=== PATIENT | female | born 1995 | race Hispanic/Latino ===

== ENCOUNTER 2024-12-31 23:50 | Emergency (ER) | payer BC ==
--- OUTSIDE RECORDS SUMMARY | 2024-12-31 23:53 | XMS REPORT | Continuity of Care Document ---
Author Name Unknown Address [address] [facility] [address] [place] [address] [facility] Address [address] [facility] [place] [address] Care Team Providers Care Gauge Checker Name Role Phone Unavailable Unavailable Unavailable Payers Payer Name Policy Type Policy Number Effective Date Expirati on Date Source Allergies, Adverse Reactions, Alerts Allergy Name Allergy Type Status Severity Reaction(s) Onset Date Inactive Date Treating Clinician Comments Source No Known Allergie s DA Active U 08-20 00:00: 00 [facility] Notes Date/Time Note Provider Source 2018-08-20 15:43:00 [facility] ([id number]) EMERGENCY PROVIDER REPORT REPORT#:[id number] REPORT STATUS: Signed DATE:08/20/18 TIME: 1543 PATIENT: KIMBERLEY RIBEIRO UNIT #: [id number] ROOM/BED: AGE: 23 SEX: F PCP PHYS: Subhash Owens MD SERVICE AUTHOR: Jonna Chaidez NP * ALL edits or amendments must be made on the electronic/computer document * HPI-Allergic Reaction General Confirmed Patient Yes Initial Greet Date/Time 08/20/18 1539 Presentation Chief Complaint Allergic reaction Hx Obtained From Patient Free Text HPI Notes Free Text HPI Notes 23 y/o female with history of depression and anxiety presents to the ED with complaints of rash to bilateral upper extremities x 3 hours. Pt reports rash is pruritic. Pt also reports intermittent boughts of difficulty breathing. Pt denies CP, SOB at this time. Pt denies changes in detergent or foods. 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 Review of Systems ROS Statements All systems rev neg except as marked. Focused Review of Systems Skin Reports: Rash. Past Medical History - Adult Stated Complaint ALLERGIC REACTION Allergies Coded Allergies: No Known Allergies (08/20/18) Smoking status for patients 13 years old or older: Unknown,if ever smoked Physical Exam Vital Signs Vital Signs First Documented: Result Date Time Pulse Ox 99 08/20 1528 B/P 141/90 08/20 1528 B/P Mean 107 08/20 152 O2 Delivery Room air 08/21 1527 Temp 36.8 08/20 152 Pulse 100 08/20 152 Resp 18 08/21 1527 Last Documented: Result Date Time Pulse Ox 99 08/20 2021 B/P 118/76 08/20 2021 B/P Mean 90 08/20 2021 O2 Delivery Room air 08/20 2021 Temp 36.9 08/20 2021 Pulse 86 08/20 2021 Resp 16 08/20 2021 Review of Vital Signs Reviewed, Vital signs normal Focused PE General/Const General/Const Awake, Alert, No acute distress, Well appearing, Well developed , Well hydrated, Well nourished, Cooperative, Not toxic appearing MS Head Head Normocephalic Eyes Eyes PERRL, EOMI, No nystagmus Ears/Nose/Throat Ears/Nose/Throat Airway patent, Mucous membranes moist, Pharynx NL, Tympanic membs NL Text/Dict Notes no swelling to lips or tongue present Resp/Chest Respiratory/Chest Breath sounds NL, Breath sounds = bilat, No respiratory distress, No rhonchi, No wheezing, No retractions Cardiovascular Cardiovascular Heart rate NL, Regular rhythm, Heart sounds NL, Cap refill not delayed Abdomen/GI Abdomen/GI Soft, Non-tender, McBurney's non-tender Skin Skin Warm, Dry, Intact, Turgor NL, No swelling Text/Dict Notes Clusters of hives noted BUE. Rash blanches. Neurologic Neurologic Oriented X3, Speech NL, No motor deficits, No sensory deficits Re-Evaluation [facility] )( Re-Evaluation/Progress #1 Text/Dict Note Pt reports relief from pruritis. Erythema to BLE decreased. Hives decreased. Time of Re-Eval 1831 )( Re-Eval Status Improved Eval Following Treatment Pt. feels better Pain Re-Evaluation Denies pain Re-Evaluation/Progress #2 Text/Dict Note Discussed all results and most likely diagnosis with patient Pt verbalizes understanding and agrees with d/c plan. Pt to f/u outpt with allergy. Strict return precautions given. All concerns addressed. Time of Eval 1921 Re-Eval Status Improved ED Course Medication(s) Ordered Medication(s) Ordered: Antihistamine Drugs Sig/Marlene Start time Last Medication Dose Route Stop Time Status Admin Diphenhydramine HCl 25 MG X1ED STA 08/20 1543 DC 08/20 IV 08/20 1544 1755 Electrolytic, Caloric, And James Sig/Marlene Start time Last Medication Dose Route Stop Time Status Admin Sodium Chloride 0 ASDIR PRN 08/20 1545 DCD IV 08/21 1443 Sodium Chloride 1,000 ML X1ED STA 08/20 1543 DC 08/20 IV 08/20 1642 1756 Gastrointestinal Drugs Sig/Marlene Start time Last Medication Dose Route Stop Time Status Admin Famotidine 20 MG X1ED STA 08/20 1543 DC 08/20 IV 08/20 1544 1756 Hormones And Synthetic Substit Sig/Marlene Start time Last Medication Dose Route Stop Time Status Admin Methylprednisolone 125 MG X1ED STA 08/20 1543 DC 08/20 Sodium Succinate IV 08/20 1544 1755 Patient Discharge Departure Vital Signs/Condition Vital Signs First Documented: Result Date Time Pulse Ox 99 08/20 1528 B/P 141/90 08/20 1528 B/P Mean 107 08/20 1528 O2 Delivery Room air 08/20 1528 Temp 36.8 08/20 1528 Pulse 100 08/20 1528 Resp 18 08/20 1528 Last Documented: Result Date Time Pulse Ox 99 08/20 2021 B/P 118/76 08/20 2021 B/P Mean 90 08/20 2021 O2 Delivery Room air 08/20 2021 Temp 36.9 08/20 2021 Pulse 86 08/20 2021 Resp 16 08/20 2021 All vital signs available at the time of this entry have been reviewed. Condition Stable Clinical Impression Clinical Impression Primary Impression: Allergic reaction Secondary Impressions: Urticaria Disposition Decision Discharge )( Discharged to Home Yes )( Time 185 )( Date 08/20/18 Discharge/Care Plan Counseled Regarding Diagnosis Prescriptions prednisone Prescriptions Reviewed Risks, Benefits, Alternative treatment Discharge Note I have spoken with the patient and/or caregivers. I have explained the patient's condition, diagnoses and treatment plan based on the information available to me at this time. I have answered the patient's and/or caregiver's questions and addressed any concerns. The patient and/or caregivers have as good an understanding of the patient's diagnosis, condition and treatment plan as can be expected at this point. The vital signs have been stable. The patient's condition is stable and appropriate for discharge from the emergency department. The patient will pursue further outpatient evaluation with the primary care physician or other designated or consulting physician as outlined in the discharge instructions. The patient and/or caregivers are agreeable to this plan of care and follow-up instructions have been explained in detail. The patient and/or caregivers have received these instructions in written format and have expressed an understanding of the discharge instructions. The patient and/or caregivers are aware that any significant change in condition or worsening of symptoms should prompt an immediate return to this or the closest emergency department or a call to 911. at [phone] RPT #:[id number] END OF REPORT [facility] 2018-08-20 15:43:00 [facility] EMERGENCY PROVIDER REPORT REPORT#:[id number] REPORT STATUS: Signed DATE:08/20/18 TIME: 1542 PATIENT: KIMBERLEY RIEBIRO UNIT #: [id number] ROOM/BED: AGE: 23 SEX: F PCP PHYS: Subhash Owens MD SERVICE AUTHOR: Jonna Chaidez NP * ALL edits or amendments must be made on the electronic/computer document * Jonna Chaidez 08/20/18 1543: HPI-Allergic Reaction General Confirmed Patient Yes Presentation Chief Complaint Allergic reaction Hx Obtained From Patient Free Text HPI Notes Free Text HPI Notes 23 y/o female with history of depression and anxiety presents to the ED with complaints of rash to bilateral upper extremities x 3 hours. Pt reports rash is pruritic. Pt also reports intermittent boughts of difficulty breathing. Pt denies CP, SOB at this time. Pt denies changes in detergent or foods. 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 Review of Systems ROS Statements All systems rev neg except as marked. Focused Review of Systems Skin Reports: Rash. Past Medical History - Adult Stated Complaint ALLERGIC REACTION Allergies Coded Allergies: No Known Allergies (08/20/18) Smoking status for patients 13 years old or older: Unknown,if ever smoked Physical Exam Vital Signs Vital Signs First Documented: Result Date Time Pulse Ox 99 08/20 1528 B/P 141/90 08/20 1528 B/P Mean 107 08/20 1528 O2 Delivery Room air 08/20 152 Temp 36.8 08/20 152 Pulse 100 08/20 1528 Resp 18 08/20 1528 Last Documented: Result Date Time Pulse Ox 99 08/20 2021 B/P 118/76 08/20 2021 B/P Mean 90 08/20 2021 O2 Delivery Room air 08/20 2021 Temp 36.9 08/20 2021 Pulse 86 08/20 2021 Resp 16 08/20 2021 Review of Vital Signs Reviewed, Vital signs normal Focused PE General/Const General/Const Awake, Alert, No acute distress, Well appearing, Well developed , Well hydrated, Well nourished, Cooperative, Not toxic appearing MS Head Head Normocephalic Eyes Eyes PERRL, EOMI, No nystagmus Ears/Nose/Throat Ears/Nose/Throat Airway patent, Mucous membranes moist, Pharynx NL, Tympanic membs NL Text/Dict Notes no swelling to lips or tongue present Resp/Chest Respiratory/Chest Breath sounds NL, Breath sounds = bilat, No respiratory distress, No rhonchi, No wheezing, No retractions Cardiovascular Cardiovascular Heart rate NL, Regular rhythm, Heart sounds NL, Cap refill not delayed Abdomen/GI Abdomen/GI Soft, Non-tender, McBurney's non-tender Skin Skin Warm, Dry, Intact, Turgor NL, No swelling Text/Dict Notes Clusters of hives noted BUE. Rash blanches. Neurologic Neurologic Oriented X3, Speech NL, No motor deficits, No sensory deficits Re-Evaluation [facility] )( Re-Evaluation/Progress #1 Text/Dict Note Pt reports relief from pruritis. Erythema to BLE decreased. Hives decreased. Time of Re-Eval 1831 )( Re-Eval Status Improved Eval Following Treatment Pt. feels better Pain Re-Evaluation Denies pain Re-Evaluation/Progress #2 Text/Dict Note Discussed all results and most likely diagnosis with patient Pt verbalizes understanding and agrees with d/c plan. Pt to f/u outpt with allergy. Strict return precautions given. All concerns addressed. Time of Eval 1921 Re-Eval Status Improved ED Course Medication(s) Ordered Medication(s) Ordered: Antihistamine Drugs Sig/Marlene Start time Last Medication Dose Route Stop Time Status Admin Diphenhydramine HCl 25 MG X1ED STA 08/20 1543 DC 08/20 IV 08/20 1544 1755 Electrolytic, Caloric, And James Sig/Marlene Start time Last Medication Dose Route Stop Time Status Admin Sodium Chloride 0 ASDIR PRN 08/20 1545 DCD IV 08/21 1443 Sodium Chloride 1,000 ML X1ED STA 08/20 1543 DC 08/20 IV 08/20 1642 1756 Gastrointestinal Drugs Sig/Marlene Start time Last Medication Dose Route Stop Time Status Admin Famotidine 20 MG X1ED STA 08/20 1543 DC 08/20 IV 08/20 1544 1756 Hormones And Synthetic Substit Sig/Marlene Start time Last Medication Dose Route Stop Time Status Admin Methylprednisolone 125 MG X1ED STA 08/20 1543 DC 08/20 Sodium Succinate IV 08/20 1544 1755 Patient Discharge Departure Vital Signs/Condition Vital Signs First Documented: Result Date Time Pulse Ox 99 08/20 1528 B/P 141/90 08/20 1528 B/P Mean 107 08/20 1528 O2 Delivery Room air 08/20 1528 Temp 36.8 08/20 1528 Pulse 100 08/20 1528 Resp 18 08/20 1528 Last Documented: Result Date Time Pulse Ox 99 08/20 2021 B/P 118/76 08/20 2021 B/P Mean 90 08/20 2021 O2 Delivery Room air 08/20 2021 Temp 36.9 08/20 2021 Pulse 86 08/20 2021 Resp 16 08/20 2021 All vital signs available at the time of this entry have been reviewed. Condition Stable Clinical Impression Clinical Impression Primary Impression: Allergic reaction Secondary Impressions: Urticaria Disposition Decision Discharge )( Discharged to Home Yes )( Time 1853 )( Date 08/20/18 Discharge/Care Plan Counseled Regarding Diagnosis Prescriptions prednisone Prescriptions Reviewed Risks, Benefits, Alternative treatment Discharge Note I have spoken with the patient and/or caregivers. I have explained the patient's condition, diagnoses and treatment plan based on the information available to me at this time. I have answered the patient's and/or caregiver's questions and addressed any concerns. The patient and/or caregivers have as good an understanding of the patient's diagnosis, condition and treatment plan as can be expected at this point. The vital signs have been stable. The patient's condition is stable and appropriate for discharge from the emergency department. The patient will pursue further outpatient evaluation with the primary care physician or other designated or consulting physician as outlined in the discharge instructions. The patient and/or caregivers are agreeable to this plan of care and follow-up instructions have been explained in detail. The patient and/or caregivers have received these instructions in written format and have expressed an understanding of the discharge instructions. The patient and/or caregivers are aware that any significant change in condition or worsening of symptoms should prompt an immediate return to this or the closest emergency department or a call to 911. Pratima Schulz 08/23/18 0949: HPI-Allergic Reaction General Initial Greet Date/Time 08/20/18 1539 Physical Exam Vital Signs Vital Signs Patient Discharge Departure Vital Signs/Condition Vital Signs Supervising Physician Note MidLv Saw Pt Alone I have reviewed the PA/SLUDGE CONTROL ATTENDANT's note and plan of care. I was available for consultation as needed at all times during the patient's visit in the emergency department. I agree with the clinical impression, plan and disposition. at 1691 at 0949 [facility] #:[id number] END OF REPORT [facility]
[2025-01-01] MEDS ORDERED: NA CHLORIDE 0.9% 1,000 ML ONE (00:14)
[2025-01-01 00:50] LABS: Absolute Lymphocytes (CBC) 2.8 K/uL (0.7-4.9); Hematocrit 40.1 % (36.0-45.0); Hemoglobin 14.0 g/dL (12.0-15.0); MCH 30.3 pg (27.0-35.0); MCHC 35.0 g/dL (32.0-36.0); MCV 86.6 fL (80-100); MPV 7.8 fL (7.6-11.3); Nucleated RBC Absolute Count 0.0 (0-0); Nucleated Red Blood Cells % 0.1 % (0-0); RBC Red Blood Cell Count 4.63 M/uL (3.86-4.86); White Blood Count 11.10 thou/uL (4.3-10.9)
[2025-01-01 00:58] LABS: ALT/SGPT 25 U/L (13-56); Albumin 3.5 g/dL (3.4-5.0); Albumin/Globulin Ratio 0.8 (1.1-1.8); Alkaline Phosphatase 76 U/L (45-117); Anion Gap 9.7 mEq/L (5.0-15.0); BUN Blood Urea Nitrogen 18 mg/dL (7-18); Globulin 4.5 g/dL (2.3-3.5); Glucose Level 102 mg/dL (74-106); Lipase 41 U/L (13-75); Magnesium 1.7 mg/dL (1.6-2.4); Potassium 3.7 mEq/L (3.5-5.1)
[2025-01-01 01:00] LABS: AST/SGOT < 10 U/L (15-37); Bilirubin Indirect, Calculated 0.0 mg/dL (0.2-0.8)
[2025-01-01 01:01] LABS: Sqamous Epithelial <5 /HPF (None Seen); Urine Culture Reflex Order NOT NEEDED; Urine Microscopic Reflex YN ORDER UMIC
--- NOTE | 2025-01-01 01:31 | EDPHYS ---
Physician Documentation [facility] Name: Osiris Morley Age: 29 yrs Sex: Female : 1995 Arrival Date: 12/31/2024 Time: 23:50 Bed 14 Private MD: ED Physician Navneet Ortiz HPI: 01/01 00:19 This 29 yrs old Female presents to ER via Ambulatory with complaints of Blood kb sugar problem. 00:19 Patient is a 29-year-old female with type 2 diabetes who presents for fluctuations in kb blood sugar levels today and is making her not feel quite right. Reports sugars from the 60s to 150s. Mother states patient is very sensitive to fluctuations in her blood sugar. Patient takes Ozempic once weekly for diabetes.. 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 - Infectious Disease History:: Denies. - Social history:: Smoking status: Patient denies any tobacco usage or history of. Patient uses alcohol, occasionally. Patient/guardian denies using street drugs. ROS: 00:19 Constitutional: As per HPI kb Exam: 00:19 Constitutional: This is a well developed, well nourished patient who is awake, alert, kb and in no acute distress. Head/Face: Normocephalic, atraumatic. ENT: Moist Mucous membranes Cardiovascular: Regular rate Respiratory: Respirations even and unlabored. No increased work of breathing. Talking in full sentences Skin: Warm, dry with normal turgor. Normal color. MS/ Extremity: Pulses equal, no cyanosis. Neurovascular intact. Full, normal range of motion. Neuro: Awake and alert, GCS 15, oriented to person, place, time, and situation. 00:45 ECG was reviewed by the Attending Physician. kb Vital Signs: 00:00 BP 129 / 88; Pulse 77; Resp 20; Pulse Ox 100% ; vc1 00:01 BP 139 / 86; Pulse 82; Resp 18 S; Temp 97.2(TE); Pulse Ox 99% ; Weight 85.28 kg; Height br2 5 ft. 3 in. ; Pain 0/10; 01:00 BP 132 / 74; Pulse 77; Resp 21; Pulse Ox 100% ; vc1 00:01 Body Mass Index 33.30 (85.28 kg, 160.02 cm) br2 00:01 Pain Scale: Adult br2 MDM: 12/31 23:54 Medical Screening Exam initiated kb 01/01 00:20 Differential diagnosis: Hyperglycemia, UTI, arrhythmia, DKA. Data reviewed: vital kb signs, nurses notes. Historians other than the Patient: Parent: Mother. 01:29 Counseling: I had a detailed discussion with the patient and/or guardian regarding the kb historical points, exam findings, and any diagnostic results supporting the discharge/admit diagnosis, lab results, the need for outpatient follow up, a family practitioner, to return to the emergency department if symptoms worsen or persist or if there are any questions or concerns that arise at home. 12/31 23:56 Order name: Basic Metabolic Panel; Complete Time: 01:02 kb 12/31 23:56 Order name: CBC with Diff; Complete Time: 00:52 kb 12/31 23:56 Order name: Hepatic Function; Complete Time: 01:02 kb 12/31 23:56 Order name: Lipase; Complete Time: 01:02 kb 12/31 23:56 Order name: Magnesium; Complete Time: 01:02 kb 12/31 23:56 Order name: Phosphorus; Complete Time: 01:02 kb 12/31 23:56 Order name: UA Rfx Khoa Cult if indicated; Complete Time: 01:02 kb 12/31 23:56 Order name: EKG; Complete Time: 23:56 kb 12/31 23:56 Order name: Cardiac monitoring; Complete Time: 00:46 kb 12/31 23:56 Order name: EKG - Nurse/Tech; Complete Time: 00:46 kb 12/31 23:56 Order name: IV Saline Lock; Complete Time: 00:32 kb 12/31 23:56 Order name: NPO; Complete Time: 00:32 kb 12/31 23:56 Order name: O2 Per Protocol; Complete Time: 00:32 kb 12/31 23:56 Order name: O2 Sat Monitoring; Complete Time: 00:32 kb EC:45 Rate is 77 beats/min. Rhythm is regular. QRS Johnston is Normal. HI interval is normal at kb 134 msec. QRS interval is normal at 112 msec. QT interval is normal at 473 msec. Administered Medications: 00:32 Drug: NS 0.9% IV 1000 ml IV at 1000 ml once; to be given as a bolus over 60 minutes cc6 Route: IV; Rate: 1000 ml; Site: left forearm; 01:32 Follow up: IV Status: Completed infusion; IV Intake: 1000ml vc1 Disposition: 07:21 Co-signature as Attending Physician, Navneet RAYMOND reviewed the patient's care tt7 provided by the Advanced Practice Provider and agree with the diagnosis and treatment plan. Disposition Summary: 01/01/25 01:30 Discharge Ordered Notes: Location: Home kb Condition: Stable kb Diagnosis - Other malaise kb Followup: kb - With: Emergency Department - When: As needed - Reason: Worsening of condition Followup: kb - With: Private Physician - When: 2 - 3 days - Reason: Recheck today's complaints, Continuance of care, Re-evaluation by your physician Discharge Instructions: - Discharge Summary Sheet kb - Weakness, Klhp-[id number] kb - Type 2 Diabetes Mellitus, Self-Care, Adult, Dlst-te-Nuce kb Forms: - Medication Reconciliation Form kb - Antibiotic Education kb - Prescription Opioid Use kb - Patient Portal Instructions kb - Leadership Thank You Letter kb Signatures: Dispatcher [employer] EDMS Stacey Abrams, SPOT FACER-C SPOT FACER-Ellen Sanders, RN RN br2 Angely Garza RN RN cc6 Navneet Ortiz DO DO tt7 Nicole Rodas RN vc1
--- NOTE | 2025-01-01 01:31 | ER ---
Nurse's Notes [facility] Name: Osiris Morley Age: 29 yrs Sex: Female : 1995 Arrival Date: 12/31/2024 Time: 23:50 Bed 14 Private MD: Diagnosis: Other malaise Presentation: 01/01 00:01 Chief complaint: Patient states: PT STATES SHE HASN'T BEEN FEELING HERSELF. DENIES br2 N/V/D/F/PAIN. PT STATES BLOOD SUGAR HAS BEEN BETWEEN 65-150'S. Coronavirus screen: Client denies travel out of the [place] in the last 14 days. Ebola Screen: Patient denies exposure to infectious person. Initial Sepsis Screen: Does the patient meet any 2 criteria? No. Patient's initial sepsis screen is negative. Does the patient have a suspected source of infection? No. Patient's initial sepsis screen is negative. Risk Assessment: Do you want to hurt yourself or someone else? Patient reports no desire to harm self or others. Onset of symptoms was December 31, 2024 at 11:00. 00:01 Method Of Arrival: Ambulatory br2 00:01 Acuity: TRACEE 3 br2 Triage Assessment: 00:05 General: Appears in no apparent distress. comfortable, Behavior is calm, cooperative. br2 Pain: Denies pain. 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 - Infectious Disease History:: Denies. - Social history:: Smoking status: Patient denies any tobacco usage or history of. Patient uses alcohol, occasionally. Patient/guardian denies using street drugs. Screenin:00 [facility] ED Fall Risk Assessment (Adult) History of falling in the last 3 months, vc1 including since admission No falls in past 3 months (0 pts) Confusion or Disorientation No (0 pts) Intoxicated or Sedated No (0 pts) Impaired Gait No (0 pts) Mobility Assist Device Used No (0 pt) Altered Elimination No (0 pt) Score/Fall Risk Level 0 - 2 = Low Risk Oriented to surroundings, Maintained a safe environment, Educated pt \T\ family on fall prevention, incl call for assistance when getting out of bed, Provided non-skid footwear, Hourly rounding (assess needs \T\ fall precautionary measures) done. Abuse screen: Denies threats or abuse. Nutritional screening: No deficits noted. Tuberculosis screening: No symptoms or risk factors identified. Assessment: 00:15 General: Appears in no apparent distress. comfortable, Behavior is calm, cooperative. cc6 Pain: Denies pain. Neuro: Level of Consciousness is awake, alert, obeys commands, Oriented to person, place, time, situation. Cardiovascular: Patient's skin is warm and dry. Respiratory: Airway is patent Respiratory effort is even, unlabored, Respiratory pattern is regular, symmetrical. GI: No signs and/or symptoms were reported involving the gastrointestinal system. : No signs and/or symptoms were reported regarding the genitourinary system. EENT: No signs and/or symptoms were reported regarding the EENT system. Derm: No signs and/or symptoms reported regarding the dermatologic system. Musculoskeletal: Circulation, motion, and sensation intact. Range of motion: intact in all extremities. 01:31 Reassessment: Patient appears in no apparent distress at this time. No changes from vc1 previously documented assessment. Patient and/or family updated on plan of care and expected duration. Pain level reassessed. Patient is alert, oriented x 3, equal unlabored respirations, skin warm/dry/pink. Vital Signs: 00:00 BP 129 / 88; Pulse 77; Resp 20; Pulse Ox 100% ; vc1 00:01 BP 139 / 86; Pulse 82; Resp 18 S; Temp 97.2(TE); Pulse Ox 99% ; Weight 85.28 kg; Height br2 5 ft. 3 in. ; Pain 0/10; 01:00 BP 132 / 74; Pulse 77; Resp 21; Pulse Ox 100% ; vc1 00:01 Body Mass Index 33.30 (85.28 kg, 160.02 cm) br2 00:01 Pain Scale: Adult br2 ED Course: 12/31 23:52 Patient arrived in ED. mr 23:54 [facility] Abrams [facility]C [facility] kb 23:54 Nanveet Ortiz DO is Attending Physician. kb 01/01 00:05 Triage completed. br2 00:05 Arm band placed on right wrist. br2 00:05 Patient has correct armband on for positive identification. Bed in low position. Call vc1 light in reach. Provided Education on: Plan of care. Pulse ox on. NIBP on. 00:10 Angely Garza, RN is Primary Nurse. cc6 00:32 Basic Metabolic Panel Sent. cc6 00:32 CBC with Diff Sent. cc6 00:32 Hepatic Function Sent. cc6 00:32 Lipase Sent. cc6 00:32 Magnesium Sent. cc6 00:32 Phosphorus Sent. cc6 00:46 UA Rfx Khoa Cult if indicated Sent. cc6 01:40 No provider procedures requiring assistance completed. IV discontinued, intact, cc6 bleeding controlled, No redness/swelling at site. Pressure dressing applied. Administered Medications: 00:32 Drug: NS 0.9% IV 1000 ml IV at 1000 ml once; to be given as a bolus over 60 minutes cc6 Route: IV; Rate: 1000 ml; Site: left forearm; 01:32 Follow up: IV Status: Completed infusion; IV Intake: 1000ml vc1 Medication: 01:32 VIS not applicable for this client. vc1 Intake: 01:32 IV: 1000ml; Total: 1000ml. vc1 Outcome: 01:30 Discharge ordered by . kb 01:41 Discharged to home ambulatory, cc6 01:41 Condition: stable 01:41 Discharge instructions given to patient, Instructed on discharge instructions, follow up and referral plans. Demonstrated understanding of instructions, follow-up care, 01:41 Patient left the ED. cc6 Signatures: Stacey Abrams, STEWARDESS SUPERVISOR-C STEWARDESS SUPERVISOR-CkHawa Main, Reg Reg mr Nicole Rodas RN RN vc1 Ellen Paniagua RN RN br2 Angely Garza, RN RN cc6
[2025-01-01 01:49] VITALS: TEMP 97.2
[2025-01-01 01:50] VITALS: O2SAT 100
[2025-01-01 01:52] VITALS: BP 132/74
== END 2025-01-01 01:41 | disposition home or self-care (01) ==
LOC: ER 23:50
DX: E11.9 Type 2 diabetes mellitus without complications (principal); R53.81 Other malaise
CPT/HCPCS: 93005; 85025; 81001; 80048; 36415; 83735; 84100; 80076; 83690; 96360; 99284; J7030